=== PATIENT | male | born 2005 | race African-American/Black ===

== ENCOUNTER 2024-02-24 13:20 | Outpatient (REF) | payer OTHER, SELFPAY ==
--- NOTE | ~2024-02-24 | MR_ITS ---
EXAMINATION: MRI FOOT WITHOUT CONTRAST, LEFT CLINICAL INFORMATION: Left foot injury 2-3 weeks ago. Pain. COMPARISON: None TECHNIQUE: MRI of the ankle without contrast is performed in a 1.5 [employer] high-field scanner. FINDINGS: BONE/JOINTS: Soft tissue marker positioned medial to the first MTP joint. Mild hallux valgus. There is edema in the medial aspect of the first metatarsal head/neck. This could represent bone bruise. Small first MTP joint effusion. There is prominent edema in the medial hallux sesamoid. This could be related to bone contusion, sesamoiditis, stress/insufficiency injury. There is a linear signal in the central aspect of the sesamoid, which could be related to bipartite sesamoid versus age-indeterminate fracture. Correlate with x-ray. There is mild edema in the medial plantar plate, which could reflect reactive edema or sprain. No acute fracture is otherwise identified in the remainder of the bones.. MUSCLES/TENDONS: Tendons intact. No appreciable tenosynovitis. LIGAMENTS: Lisfranc ligament is grossly intact. PLANTAR FASCIA: Intact. SUBCUTANEOUS SOFT TISSUES: Edema in the soft tissues, medial to the first metatarsal/MTP joint. MR/MR foot LT wo con IMPRESSION: 1. Findings in the medial aspect of the first metatarsal head/neck, could reflect bone contusion. Small first MTP joint effusion. 2. Prominent edema in the medial hallux sesamoid, nonspecific. Differential consideration include bone contusion, sesamoiditis, stress/insufficiency injury. Question subtle linear signal in the sesamoid, which could reflect a bipartite patella versus age-indeterminate fracture. Correlate with x-ray. 3. Mild edema in the medial plantar plate of the first MTP joint, could reflect reactive edema or sprain.
== END 2024-02-24 13:21 | disposition home or self-care (01) ==
LOC: HO.MRI 13:20
PROVIDERS: PCP Family Medicine Sports Medicine; Visit Provider Family Medicine Sports Medicine
DX: M25.572 Pain in left ankle and joints of left foot (principal)
CPT/HCPCS: 73718